=== PATIENT | female | born 1990 | race Hispanic/Latino ===

== ENCOUNTER 2022-10-24 03:40 | Emergency (ER) | payer OTHER ==
--- OUTSIDE RECORDS SUMMARY | 2022-10-24 03:43 | XMS REPORT | Continuity of Care Document ---
:1990 Author Organization [facility] t Address [address] [place] [address] Care Team Providers Name Role Phone Mily Simon Attending Clinician Unavailable Mily Simon Attending Clinician Unavailable Mily Simon Attending Clinician Unavailable Mily Simon Admitting Clinician Unavailable Payers Payer Name Policy Type Policy Number Effective Date Expiration Date S ource Problems This patient has no known problems. Allergies, Adverse Reactions, Alerts Allergy Allergy Status Severity Reaction(s) Onset Inactive Treating Comm ents Source Name Type Date Date Clinician No Known DA Active U 2020-1 [facility] 10-31 Allergie 00:00: s 00 No Known DA Active U 2020-1 [facility] Drug 09-21 Allergie 00:00: s 00 Unable DA Active U 2020-1 [facility] to 09-21 Assess 00:00: 00 Medications This patient has no known medications. Vital Signs Vital Name Observation Time Observation Value Comments Source Initial DRG Weight: 2020-10-10 16:48:30 1.5964 Working DRG Weight: 2020-10-10 16:48:30 1.5964 Have you Lost Weight Without 2020-10-10 16:48:30 No Trying in the Past 6 Months? 02 Sat by Pulse Oximetry 2020-10-10 16:48:30 68 /min BMI more than 35 2020-10-10 16:48:30 N Body Mass Index 2020-10-10 16:48:30 41.6 Height 2020-10-10 16:48:30 167.64\S\66 Pulse Rate 2020-10-10 16:48:30 68 /min Pulse Strength 2020-10-10 16:48:30 Normal /min Respiratory Rate 2020-10-10 16:48:30 20 /min Respiratory Depth 2020-10-10 16:48:30 Normal /min Respiratory Effort 2020-10-10 16:48:30 Spontaneous /min Respiratory Pattern 2020-10-10 16:48:30 Normal /min Temperature 2020-10-10 16:48:30 36.6\S\97.9 Weight 2020-10-10 16:48:30 143961.831\S\4128 Weight Measurement Method 2020-10-10 16:48:30 Standing Scale Initial DRG Weight: 2020-10-08 14:07:40 1.5964 Working DRG Weight: 2020-10-08 14:07:40 1.5964 Have you Lost Weight Without 2020-10-08 14:07:40 No Trying in the Past 6 Months? 02 Sat by Pulse Oximetry 2020-10-08 14:07:40 68 /min BMI more than 35 2020-10-08 14:07:40 N Body Mass Index 2020-10-08 14:07:40 41.6 Height 2020-10-08 14:07:40 167.64\S\66 Pulse Rate 2020-10-08 14:07:40 68 /min Pulse Strength 2020-10-08 14:07:40 Normal /min Respiratory Rate 2020-10-08 14:07:40 20 /min Respiratory Depth 2020-10-08 14:07:40 Normal /min Respiratory Effort 2020-10-08 14:07:40 Spontaneous /min Respiratory Pattern 2020-10-08 14:07:40 Normal /min Temperature 2020-10-08 14:07:40 36.6\S\97.9 Weight 2020-10-08 14:07:40 712978.831\S\4128 Weight Measurement Method 2020-10-08 14:07:40 Standing Scale 02 Sat by Pulse Oximetry 2020-09-08 01:35:25 68 /min BMI more than 35 2020-09-08 01:35:25 N Body Mass Index 2020-09-08 01:35:25 41.6 Height 2020-09-08 01:35:25 167.64\S\66 Pulse Rate 2020-09-08 01:35:25 68 /min Pulse Strength 2020-09-08 01:35:25 Normal /min Respiratory Rate 2020-09-08 01:35:25 20 /min Respiratory Depth 2020-09-08 01:35:25 Normal /min Respiratory Effort 2020-09-08 01:35:25 Spontaneous /min Respiratory Pattern 2020-09-08 01:35:25 Normal /min Temperature 2020-09-08 01:35:25 36.6\S\97.9 Weight 2020-09-08 01:35:25 889539.831\S\4128 Weight Measurement Method 2020-09-08 01:35:25 Standing Scale Initial DRG Weight: 2020-09-08 01:35:25 1.5964 Working DRG Weight: 2020-09-08 01:35:25 1.5964 Have you Lost Weight Without 2020-09-08 01:35:25 No Trying in the Past 6 Months? Have you Lost Weight Without 2020-09-04 04:34:45 No Trying in the Past 6 Months? 02 Sat by Pulse Oximetry 2020-09-04 04:34:45 68 /min BMI more than 35 2020-09-04 04:34:45 N Body Mass Index 2020-09-04 04:34:45 41.6 Height 2020-09-04 04:34:45 167.64\S\66 Pulse Rate 2020-09-04 04:34:45 68 /min Pulse Strength 2020-09-04 04:34:45 Normal /min Respiratory Rate 2020-09-04 04:34:45 20 /min Respiratory Depth 2020-09-04 04:34:45 Normal /min Respiratory Effort 2020-09-04 04:34:45 Spontaneous /min Respiratory Pattern 2020-09-04 04:34:45 Normal /min Temperature 2020-09-04 04:34:45 36.6\S\97.9 Weight 2020-09-04 04:34:45 907552.831\S\4128 Weight Measurement Method 2020-09-04 04:34:45 Standing Scale Have you Lost Weight Without 2020-09-03 13:58:01 No Trying in the Past 6 Months? 02 Sat by Pulse Oximetry 2020-09-03 13:58:01 68 /min BMI more than 35 2020-09-03 13:58:01 N Body Mass Index 2020-09-03 13:58:01 41.6 Height 2020-09-03 13:58:01 167.64\S\66 Pulse Rate 2020-09-03 13:58:01 68 /min Pulse Strength 2020-09-03 13:58:01 Normal /min Respiratory Rate 2020-09-03 13:58:01 20 /min Respiratory Depth 2020-09-03 13:58:01 Normal /min Respiratory Effort 2020-09-03 13:58:01 Spontaneous /min Respiratory Pattern 2020-09-03 13:58:01 Normal /min Temperature 2020-09-03 13:58:01 36.6\S\97.9 Weight 2020-09-03 13:58:01 448131.831\S\4128 Weight Measurement Method 2020-09-03 13:58:01 Standing Scale WEIGHT 2020-09-01 21:51:00 117.479223 kg 02 Sat by Pulse Oximetry 2020-09-01 18:35:43 99 /min BMI more than 35 2020-09-01 18:35:43 N Body Mass Index 2020-09-01 18:35:43 41.6 Height 2020-09-01 18:35:43 167.64\S\66 Pulse Rate 2020-09-01 18:35:43 92 /min Respiratory Rate 2020-09-01 18:35:43 12 /min Respiratory Depth 2020-09-01 18:35:43 Normal /min Respiratory Effort 2020-09-01 18:35:43 Spontaneous /min Respiratory Pattern 2020-09-01 18:35:43 Normal /min Temperature 2020-09-01 18:35:43 36.4\S\97.5 Weight 2020-09-01 18:35:43 211893.831\S\4128 Weight Measurement Method 2020-09-01 18:35:43 Standing Scale 02 Sat by Pulse Oximetry 2020-09-01 15:08:41 94 /min BMI more than 35 2020-09-01 15:08:41 N Body Mass Index 2020-09-01 15:08:41 41.6 Height 2020-09-01 15:08:41 167.64\S\66 Pulse Rate 2020-09-01 15:08:41 93 /min Respiratory Rate 2020-09-01 15:08:41 16 /min Respiratory Depth 2020-09-01 15:08:41 Normal /min Respiratory Effort 2020-09-01 15:08:41 Spontaneous /min Respiratory Pattern 2020-09-01 15:08:41 Normal /min Temperature 2020-09-01 15:08:41 36.4\S\97.5 Weight 2020-09-01 15:08:41 252979.831\S\4128 Weight Measurement Method 2020-09-01 15:08:41 Standing Scale 02 Sat by Pulse Oximetry 2020-09-01 14:49:58 99 /min BMI more than 35 2020-09-01 14:49:58 N Body Mass Index 2020-09-01 14:49:58 41.6 Height 2020-09-01 14:49:58 167.64\S\66 Pulse Rate 2020-09-01 14:49:58 89 /min Respiratory Rate 2020-09-01 14:49:58 17 /min Respiratory Depth 2020-09-01 14:49:58 Normal /min Respiratory Effort 2020-09-01 14:49:58 Spontaneous /min Respiratory Pattern 2020-09-01 14:49:58 Normal /min Temperature 2020-09-01 14:49:58 36.4\S\97.5 Weight 2020-09-01 14:49:58 061254.831\S\4128 Weight Measurement Method 2020-09-01 14:49:58 Standing Scale 02 Sat by Pulse Oximetry 2020-09-01 09:08:03 99 /min Body Mass Index 2020-09-01 09:08:03 41.6 Height 2020-09-01 09:08:03 167.64\S\66 Pulse Rate 2020-09-01 09:08:03 79 /min Respiratory Rate 2020-09-01 09:08:03 18 /min Temperature 2020-09-01 09:08:03 36\S\96.8 Weight 2020-09-01 09:08:03 844279.831\S\4128 Weight Measurement Method 2020-09-01 09:08:03 Standing Scale WEIGHT 2020-09-01 09:06:00 117.064691 kg HEIGHT 2020-09-01 09:06:00 167.64 cm Procedures This patient has no known procedures. Encounters Start End Encounter Admission Attending Care Care Encounter Source Date/Time Date/Time Type Type Clinicians Facility Department ID 2020-07-10 Inpatient Mily Simon [facility] ENDO [id number] [facility] 15:20:[address] [facility] 2020-06-05 Inpatient Mily Simon [facility] R[facility]ARD [id number] [facility] 13:23:[address] [facility] 2020-09-01 2020-09-01 Outpatient [facility] JM0 [id number] [facility] 12:30:00 12:30:00 Mily 47 2020-09-01 2020-09-01 Outpatient [facility] [id number] [facility] 06:04:00 06:04:00 47 2020-07-22 2020-07-22 Outpatient [facility] [id number] [facility] 12:45:00 12:45:00 Mily 97 2020-07-22 2020-07-22 Outpatient [facility] [id number] [facility] 09:36:00 09:36:00 97 Results Test Description Test Time Test Comments Results Result Comments Source Complete Blood Count Auto Diff 2020-09-03 09:16:00 Test Item Value Reference Range Interpretation Comme nts White Blood Count (test code = WBCT) 7.4 x10 3/uL 4.4-10.5 N Red Blood Count (test code = RBC) 4.08 x10 6/uL 3.75-5.20 N Hemoglobin (test code = HGBT) 12.3 g/dL 12.2-14.8 N Hematocrit (test code = HCTT) 36.7 % 36.5-44.4 N Mean Corpuscular Volume (test code = MCV) 90.00 fL 80.00-100.00 N Mean Corpuscular Hemoglobin (test code = MCH) 30.1 pg 27.0-32. 5 N Mean Corpuscular HGB Conc (test code = MCHC) 33.50 g/dL 32.00-37. 50 N RDW Coefficient of Variation (test code = RDWCV) 12.0 % 11.5- 14.5 N Platelet Count (test code = PLTT) 332.0 x10 3/uL 140.0-440.0 N Mean Platelet Volume (test code = MPV) 9.3 fL Immature Granulocytes % (Auto) (test code = IMMGRAN%) 0.3 % 0.0-5.0 N Neutrophils % (Auto) (test code = NE%) 63.3 % 36.0-70.0 N Lymphocytes % (Auto) (test code = LY%) 28.5 % 12.0-44.0 N Monocytes % (Auto) (test code = MO%) 7.0 % 0.0-11.0 N Eosinophils % (Auto) (test code = EO%) 0.5 % 0.0-7.0 N Basophils % (Auto) (test code = BA%) 0.4 % 0.0-2.0 N Immature Granulocytes # (Auto) (test code = IMMGRAN#) 0.02 x10 3/uL Neutrophils # (Auto) (test code = NE#) 4.7 x10 3/uL 1.6-7.4 N Lymphocytes # (Auto) (test code = LY#) 2.10 x10 3/uL 0.50-4.60 N Monocytes # (Auto) (test code = MO#) 0.52 x10 3/uL 0.00-1.20 N Eosinophils # (Auto) (test code = EO#) 0.04 x10 3/uL 0.00-0.74 N Basophils # (Auto) (test code = BA#) 0.03 x10 3/uL 0.00-0.21 N nRBC Abs (test code = NRBCA) 0 nRBC Pct (test code = NRBCP) 0 % Complete Blood Count Auto [id number] 07:00:00 Test Item Value Reference Range Interpretation Comments White Blood Count (test code = 12.7 x10 3/uL 4.4-10.5 H WBCT) Red Blood Count (test code = 4.53 x10 6/uL 3.75-5.20 N RBC) Hemoglobin (test code = HGBT) 13.4 g/dL 12.2-14.8 N Hematocrit (test code = HCTT) 41.3 % 36.5-44.4 N Mean Corpuscular Volume (test 91.20 fL 80.00-100.00 N code = MCV) Mean Corpuscular Hemoglobin 29.6 pg 27.0-32.5 N (test code = MCH) Mean Corpuscular HGB Conc 32.40 g/dL 32.00-37.50 N (test code = MCHC) RDW Coefficient of Variation 11.9 % 11.5-14.5 N (test code = RDWCV) Platelet Count (test code = 384.0 x10 3/uL 140.0-440.0 N PLTT) Mean Platelet Volume (test 9.1 fL code = MPV) Immature Granulocytes % (Auto) 0.5 % 0.0-5.0 N (test code = IMMGRAN%) Neutrophils % (Auto) (test 81.9 % 36.0-70.0 H code = NE%) Lymphocytes % (Auto) (test 11.6 % 12.0-44.0 L code = LY%) Monocytes % (Auto) (test code 5.8 % 0.0-11.0 N = MO%) Eosinophils % (Auto) (test 0.0 % 0.0-7.0 N code = EO%) Basophils % (Auto) (test code 0.2 % 0.0-2.0 N = BA%) Immature Granulocytes # (Auto) 0.06 x10 3/uL (test code = IMMGRAN#) Neutrophils # (Auto) (test 10.4 x10 3/uL 1.6-7.4 H code = NE#) Lymphocytes # (Auto) (test 1.47 x10 3/uL 0.50-4.60 N code = LY#) Monocytes # (Auto) (test code 0.73 x10 3/uL 0.00-1.20 N = MO#) Eosinophils # (Auto) (test 0.00 x10 3/uL 0.00-0.74 N code = EO#) Basophils # (Auto) (test code 0.02 x10 3/uL 0.00-0.21 N = BA#) nRBC Abs (test code = NRBCA) 0 nRBC Pct (test code = NRBCP) 0 % Comprehensive Metabolic [id number] 07:00:00 Test Item Value Reference Range Interpretation Comments SODIUM (test code = NA) 135.0 mmol/L 136.0-145.0 L Potassium,K (test code = K) 4.2 mmol/L 3.0-5.1 N Chloride (test code = CL) 105 mmol/L 98-107 N Carbon Dioxide (test code = 20 mmol/L 20-31 N CO2) Anion Gap (test code = GAP) 10 mmol/L 5-15 N Blood Urea Nitrogen (test code 7 mg/dL 9-23 L = BUN) Creatinine (test code = CREATT) 0.58 mg/dL 0.55-1.02 N Creatinine Clr Calc Pharmacy 182.79 mL/min (test code = CRCLPHA) Estimated GFR ( Liane > 60 mL/min/1.73m2 (test code = EGFRAA) Estimated GFR (Non Afr Liane > 60 mL/min/1.73m2 (test code = EGFRNAA) BUN/Creatinine Ratio (test code 12 ratio 10-20 N = BCRATIO) Glucose (test code = GLU) 128 mg/dL 74-106 H Osmolality,Calculated (test 279.5 code = OSMOC) Calcium (test code = CA) 8.3 mg/dL 8.3-10.6 N Bilirubin,Total (test code = 0.6 mg/dL 0.2-1.1 N BILIT) Aspartate Amino Transferase 61 U/L 0-34 H (test code = AST) Alanine Aminotransferase (test 84 U/L 10-49 H code = ALT) Total Protein (test code = TP) 7.0 g/dL 5.7-8.2 N Albumin Level (test code = ALB) 4.5 g/dL 3.2-4.8 N Globulin (test code = GLOB) 2.5 mg/dL 2.3-3.5 N Albumin/Globulin Ratio (test 1.8 ratio 0.8-2.0 N code = AGRATIO) Alkaline Phosphatase (test code 64 U/L 46-116 N = ALP) HCG, Urine Qual (LAB)2020-09-01 09:00:00 Test Item Value Reference Range Interpretation Comments HCG, Urine, Qual (test code = HCGU) Negative Negative HCG, Urine Qual (LAB)2020-07-22 11:53:00 Test Item Value Reference Range Interpretation Comments HCG, Urine, Qual (test code = HCGU) Negative Negative
[2022-10-24] MEDS ORDERED: ACETAMINOPHEN 500 MG TAB ONE (04:42)
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
--- NOTE | 2022-10-25 12:30 | RAD REPORT ---
EXAM DESCRIPTION: RAD - Hand Left 3 View - 10/24/2022 4:38 am CLINICAL HISTORY: PAIN; COMPARISON: None. FINDINGS: The visualized osseous structures appear intact. The joint spaces appear unremarkable. T here is no evidence for bony erosion or destruction. There is no radiopaque foreign body. IMPRESSION: 1. No acute findings of the left hand. Electronically signed by: David Chowdhury MD 10/24/2022 5:47 AM BRACELET MAKER NOVELTY Due to temporary technical issues with the PACS/Fluency reporting system, reports are being signed by the in house radiologists without review as a courtesy to insure prompt reporting. The interpreting radiologist is fully responsible for the content of the report.
--- NOTE | 2022-10-25 12:33 | RAD REPORT ---
EXAM DESCRIPTION: RAD - Hand Right 3 View - 10/24/2022 4:38 am CLINICAL HISTORY: PAIN; COMPARISON: None. FINDINGS: The visualized osseous structures appear intact. The joint spaces appear unremarkable. T here is no evidence for bony erosion or destruction. There is no radiopaque foreign body. IMPRESSION: 1. No acute findings of the right hand. Electronically signed by: David Chowdhury MD 10/24/2022 5:47 AM REGULATORY AFFAIRS ASSISTANT Due to temporary technical issues with the PACS/Fluency reporting system, reports are being signed by the in house radiologists without review as a courtesy to insure prompt reporting. The interpreting radiologist is fully responsible for the content of the report.
--- NOTE | 2022-10-25 12:45 | RAD REPORT ---
EXAM DESCRIPTION: CT - Head C Spine Mpr Wo Con - 10/24/2022 6:51 am CLINICAL HISTORY: TRAUMA TECHNIQUE: 5 mm axial images were obtained through the brain without IV contrast. This exam was perf ormed according to our departmental dose-optimization program which includes use of Automated Exposur e Control, adjustment of the mA and/or kV according to patient size and/or use of iterative reconstru ction technique. COMPARISON: None. FINDINGS: The brain parenchyma appears age appropriate. There is no intra-axial or extra-axial ble ed seen. There is no mass or mass effect. There is no evidence of hydrocephalus. The orbital contents appear unremarkable. The visualized paranasal sinuses and mastoid air cells are patent. No fracture is present. IMPRESSION: No acute intracranial abnormality. COMPARISON: None TECHNIQUE: Contiguous noncontrast axial images of the cervical spine were obtained. Sagittal and cor onal reformatted images are generated for review. This exam was performed according to our department al dose-optimization program, which includes automated exposure control, adjustment of the mA and/or kV according to patient size and/or use of iterative reconstruction technique. FINDINGS: BONES: The visualized osseous structures appear intact. The base of the odontoid is unrem arkable. The facet joints appear in anatomic alignment. The spinolaminar line is normal. DEGENERATIVE CHANGES: No significant degenerative changes. SOFT TISSUES: The prevertebral soft tissues are unremarkable. The visualized lung apices are clear . IMPRESSION: No acute osseous abnormality of the cervical spine. Electronically signed by: David Chowdhury MD 10/24/2022 5:48 AM [employer] [email or web address] Due to temporary technical issues with the PACS/Fluency reporting system, reports are being signed by the in house radiologists without review as a courtesy to insure prompt reporting. The interpreting radiologist is fully responsible for the content of the report.
--- NOTE | 2022-10-25 12:48 | RAD REPORT ---
EXAM DESCRIPTION: CT - Facial Bones W/ Mpr - 10/24/2022 6:51 am CLINICAL HISTORY: TRAUMA COMPARISON: None TECHNIQUE: Contiguous axial sections were obtained through the face without IV contrast administrati on. Sagittal and coronal reconstructed images were obtained. This exam was performed according to our departmental dose-optimization program, which includes automated exposure control, adjustment of the mA and/or kV according to patient size and/or use of iterative reconstruction technique. FINDINGS: FACIAL BONES: The maxilla, pterygoid plates, and zygomatic arches are intact. The mandibl e is intact. The mandibular condyles are normally situated. The nasal bones and maxillary nasal proce sses are intact. ORBITS: The globes appear intact. The extraocular muscles, optic nerve sheath complexes and lacrimal glands appear unremarkable. No retrobulbar hematoma or mass is seen. The orbital logan and rims are intact. SINUSES/MASTOID: The paranasal sinuses and mastoid air cells are well aerated. No acute sinusitis is identified. SOFT TISSUES: No focal soft tissue abnormality. IMPRESSION: 1. No acute facial fracture. Electronically signed by: David Chowdhury MD 10/24/2022 5:50 AM [facility] Due to temporary technical issues with the PACS/Fluency reporting system, reports are being signed by the in house radiologists without review as a courtesy to insure prompt reporting. The interpreting radiologist is fully responsible for the content of the report.
== END 2022-10-24 06:21 | disposition home or self-care (01) ==
LOC: ER 03:40
DX: M79.642 Pain in left hand (principal); M79.641 Pain in right hand; S09.93XA Unspecified injury of face, initial encounter; Y04.8XXA Assault by other bodily force, initial encounter; Z98.82 Breast implant status
CPT/HCPCS: 70450; 70486; 72125; 76377; 99283

== ENCOUNTER 2022-11-05 13:32 | Emergency (ER) | payer OTHER ==
--- OUTSIDE RECORDS SUMMARY | 2022-11-05 13:34 | XMS REPORT | Continuity of Care Document ---
:1990 Author Organization [facility] t Address [address] [place] [address] Care Team Providers Name Role Phone Mily [...] Temperature 2020-10-10 16:48:30 36.6\S\97.9 Weight 2020-10-10 16:48:30 246182.831\S\4128 Weight Measurement Method 2020-10-10 16:48:30 Standing Scale [...] Temperature 2020-10-08 14:07:40 36.6\S\97.9 Weight 2020-10-08 14:07:40 988029.831\S\4128 Weight Measurement Method 2020-10-08 14:07:40 Standing Scale [...] Temperature 2020-09-08 01:35:25 36.6\S\97.9 Weight 2020-09-08 01:35:25 827558.831\S\4128 Weight Measurement Method 2020-09-08 01:35:25 Standing Scale [...] Temperature 2020-09-04 04:34:45 36.6\S\97.9 Weight 2020-09-04 04:34:45 621684.831\S\4128 Weight Measurement Method 2020-09-04 04:34:45 Standing Scale [...] Temperature 2020-09-03 13:58:01 36.6\S\97.9 Weight 2020-09-03 13:58:01 734209.831\S\4128 Weight Measurement Method 2020-09-03 13:58:01 Standing Scale WEIGHT 2020-09-01 21:51:00 117.639550 kg 02 Sat by Pulse Oximetry 2020-09-01 [...] Temperature 2020-09-01 18:35:43 36.4\S\97.5 Weight 2020-09-01 18:35:43 123622.831\S\4128 Weight Measurement Method 2020-09-01 18:35:43 Standing Scale [...] Temperature 2020-09-01 15:08:41 36.4\S\97.5 Weight 2020-09-01 15:08:41 857342.831\S\4128 Weight Measurement Method 2020-09-01 15:08:41 Standing Scale [...] Temperature 2020-09-01 14:49:58 36.4\S\97.5 Weight 2020-09-01 14:49:58 946059.831\S\4128 Weight Measurement Method 2020-09-01 14:49:58 Standing Scale 02 Sat by Pulse Oximetry 2020-09-01 09:08:03 99 /min Body Mass Index 2020-09-01 09:08:03 41.6 Height 2020-09-01 09:08:03 167.64\S\66 Pulse Rate 2020-09-01 09:08:03 79 /min Respiratory Rate 2020-09-01 09:08:03 18 /min Temperature 2020-09-01 09:08:03 36\S\96.8 Weight 2020-09-01 09:08:03 962129.831\S\4128 Weight Measurement Method 2020-09-01 09:08:03 Standing Scale WEIGHT 2020-09-01 09:06:00 117.053485 kg HEIGHT 2020-09-01 09:06:00 167.64 cm Procedures This patient has no known procedures. Encounters Start End Encounter Admission Attending Care Care Encounter Source Date/Time Date/Time Type Type Clinicians Facility Department ID 2020-07-10 Inpatient Mily Simon [facility] ENDO [id number] [facility] 15:20:00 [facility] 2020-06-05 Inpatient Mily Simon [facility] RICHARD [id number] St[facility] 13:23:00 [facility] 2020-09-01 2020-09-01 Outpatient [facility] JM0 [id number] [facility] 12:30:00 12:30:00 Mily 47 2020-09-01 2020-09-01 Outpatient [facility] [id number] [facility] 06:04:00 06:04:00 47 2020-07-22 2020-07-22 Outpatient [facility] JM0 [id number] [facility] 12:45:00 12:45:00 Mily 97 2020-07-22 2020-07-22 Outpatient [facility] [id number] [facility] 09:36:00 09:36:00 97 Results Test [...] NRBCP) 0 % Complete Blood Count Auto [id number] 07:00:00 Test Item Value Reference Range Interpretation [...] code = NRBCP) 0 % Comprehensive Metabolic [id number] 07:00:00 Test Item Value Reference Range Interpretation [...]
[2022-11-05 14:52] LABS: Urine Blood Negative (Negative); Urine Glucose Negative (Negative); Urine Protein Negative (Negative); Urine Specific Gravity >=1.030 (1.005-1.030); Urine pH 5.5 (5.0-7.0)
--- NOTE | 2022-11-05 15:00 | ER ---
Nurse's Notes [facility] Name: Rubina Dominguez Age: 32 yrs Sex: Female : 1990 Arrival Date: 11/05/2022 Time: 13:33 Bed 18 Private MD: Diagnosis: UTI/ Urinary tract infection, site not specified Presentation: 11/05 13:56 Chief complaint: Patient states: Nausea \T\ Dizziness X 2 days, headache, ringing in ld1 ears. Pt reports coming to ER on 10/25 for concussion, symptoms have not resolved. Coronavirus screen: At this time, the client does not indicate any symptoms associated with coronavirus-19. Ebola Screen: No symptoms or risks identified at this time. Initial Sepsis Screen: Does the patient meet any 2 criteria? No. Patient's initial sepsis screen is negative. Does the patient have a suspected source of infection? No. Patient's initial sepsis screen is negative. Risk Assessment: Do you want to hurt yourself or someone else? Patient reports no desire to harm self or others. Onset of symptoms was November 05, 2022. 13:56 Method Of Arrival: Ambulatory ld1 13:56 Acuity: ANDERS 3 ld1 Triage Assessment: 13:58 Headache History: Denies prior headaches. General: Appears in no apparent distress. ld1 comfortable, Behavior is calm, cooperative, appropriate for age. Pain: Complains of pain in face Pain does not radiate. Pain currently is 7 out of 10 on a pain scale. Quality of pain is described as throbbing, Pain began 15 days ago. EENT: No signs and/or symptoms were reported regarding the EENT system. EENT: Reports ringing in left ear and right ear. Neuro: Level of Consciousness is awake, alert, obeys commands, Oriented to person, place, time, situation, Reports. Cardiovascular: Capillary refill < 3 seconds Patient's skin is warm and dry. Respiratory: Airway is patent Respiratory effort is even, unlabored. Historical: - Allergies: 13:58 No Known Allergies; ld1 - PMHx: 13:58 None; ld1 - PSHx: 13:58 gastric sleeve; breast augmentation; Tummy tuck; ld1 - Immunization history:: Adult Immunizations up to date, Client reports receiving the 2nd dose of the Covid vaccine. - Social history:: Smoking status: Patient denies any tobacco usage or history of. Patient/guardian denies using alcohol. Screenin:00 [facility] ED Fall Risk Assessment (Adult) History of falling in the last 3 months, ko1 including since admission No falls in past 3 months (0 pts) Confusion or Disorientation No (0 pts) Intoxicated or Sedated No (0 pts) Impaired Gait No (0 pts) Mobility Assist Device Used No (0 pt) Altered Elimination No (0 pt) Score/Fall Risk Level 0 - 2 = Low Risk Oriented to surroundings, Maintained a safe environment, Educated pt \T\ family on fall prevention, incl call for assistance when getting out of bed, Assessed \T\ reinforced patient's understanding of fall precautions, Provided non-skid footwear, Hourly rounding (assess needs \T\ fall precautionary measures) done, Used ambulatory aids as needed (educated on \T\ assisted with), Used gait belt as appropriate. Abuse screen: Denies threats or abuse. Denies injuries from another. Nutritional screening: No deficits noted. Tuberculosis screening: No symptoms or risk factors identified. Assessment: 15:00 General: Appears in no apparent distress. comfortable, Behavior is calm, cooperative, ko1 appropriate for age. Pain: Complains of pain in right ear and left ear and face. Neuro: No deficits noted. Cardiovascular: No deficits noted. Respiratory: No deficits noted. GI: No deficits noted. : No deficits noted. EENT: Reports pain in right ear and left ear and face. Derm: No deficits noted. Musculoskeletal: No deficits noted. Vital Signs: 13:56 BP 135 / 88; Pulse 79; Resp 18; Temp 97.3(TE); Pulse Ox 100% on R/A; Weight 95.25 kg; ld1 Height 5 ft. 6 in. (167.64 cm); Pain 7/10; 15:00 BP 129 / 82; Pulse 74; Resp 18; Pulse Ox 99% ; ko1 13:56 Body Mass Index 33.89 (95.25 kg, 167.64 cm) ld1 ED Course: 13:33 Patient arrived in ED. mr 13:35 [facility] snw 13:35 Renaldo Reid DO is Attending Physician. snw 13:58 Triage completed. ld1 13:58 Arm band placed on right wrist. ld1 14:52 Urine collected: clean catch specimen, clear. tm3 14:53 Norma Martel, RN is Primary Nurse. ko1 14:54 Urine Culture Sent. ko1 14:54 Urine Microscopic Only Sent. ko1 15:00 Patient has correct armband on for positive identification. Bed in low position. Call ko1 light in reach. Side rails up X 1. Pulse ox on. NIBP on. 15:00 No provider procedures requiring assistance completed. Patient did not have IV access ko1 during this emergency room visit. 15:23 Urine --Ancillary (enter results) Sent. ko1 Administered Medications: 15:26 Drug: Rocephin (cefTRIAXone) 1 grams Route: IM; Site: right gluteus; ko1 Medication: 15:00 VIS not applicable for this client. ko1 Outcome: 15:00 Discharge ordered by . snw 15:00 Discharged to home ambulatory. ko1 15:00 Condition: stable 15:00 Discharge instructions given to patient, Instructed on discharge instructions, follow up and referral plans. medication usage, Demonstrated understanding of instructions, follow-up care, medications, Prescriptions given X 1. 15:54 Patient left the ED. ko1 Addendum: 11/08/2022 08:49 Addendum: Culture Results: Positive urine culture. No further action required. Bacteria i w sensitive to prescribed antibiotic. Signatures: Joseph Murphy tm3 Lian Mata, FUSE ASSEMBLER-C FUSE ASSEMBLER-Csnw Janice Giles Colleen Tovar, RN TANISHA Rachel Romero RN RN ld1 Norma Martel, RN RN ko1
--- NOTE | 2022-11-05 15:00 | EDPHYS ---
Physician Documentation [facility] Name: Rubina Dominguez Age: 32 yrs Sex: Female : 1990 Arrival Date: 11/05/2022 Time: 13:33 Bed 18 Private MD: ED Physician Renaldo Reid HPI: 11/05 14:54 This 32 yrs old Female presents to ER via Ambulatory with complaints of snw Headache, Nausea, Dizziness. Historical: - Allergies: 13:58 No Known Allergies; ld1 - PMHx: 13:58 None; ld1 - PSHx: 13:58 gastric sleeve; breast augmentation; Tummy tuck; ld1 - Immunization history:: Adult Immunizations up to date, Client reports receiving the 2nd dose of the Covid vaccine. - Social history:: Smoking status: Patient denies any tobacco usage or history of. Patient/guardian denies using alcohol. ROS: 14:52 Constitutional: Negative for fever, chills, and weight loss, Eyes: Negative for injury, snw pain, redness, and discharge, Neck: Negative for injury, pain, and swelling, Cardiovascular: Negative for chest pain, palpitations, and edema, Respiratory: Negative for shortness of breath, cough, wheezing, and pleuritic chest pain, Abdomen/GI: Negative for abdominal pain, nausea, vomiting, diarrhea, and constipation, Back: Negative for injury and pain, : Negative for injury, bleeding, discharge, and swelling, MS/Extremity: Negative for injury and deformity, Skin: Negative for injury, rash, and discoloration, Psych: Negative for depression, anxiety, suicide ideation, homicidal ideation, and hallucinations. 14:52 Neuro: Positive for dizziness, headache. Exam: 14:51 Constitutional: This is a well developed, well nourished patient who is awake, alert, snw and in no acute distress. Head/Face: Normocephalic, atraumatic. Eyes: Pupils equal round and reactive to light, extra-ocular motions intact. Lids and lashes normal. Conjunctiva and sclera are non-icteric and not injected. Cornea within normal limits. Periorbital areas with no swelling, redness, or edema. ENT: Nares patent. No nasal discharge, no septal abnormalities noted. Tympanic membranes are normal and external auditory canals are clear. Oropharynx with no redness, swelling, or masses, exudates, or evidence of obstruction, uvula midline. Mucous membranes moist. Neck: Trachea midline, no thyromegaly or masses palpated, and no cervical lymphadenopathy. Supple, full range of motion without nuchal rigidity, or vertebral point tenderness. No Meningismus. Chest/axilla: Normal chest wall appearance and motion. Nontender with no deformity. No lesions are appreciated. Cardiovascular: Regular rate and rhythm with a normal S1 and S2. No gallops, murmurs, or rubs. Normal PMI, no JVD. No pulse deficits. Respiratory: Lungs have equal breath sounds bilaterally, clear to auscultation and percussion. No rales, rhonchi or wheezes noted. No increased work of breathing, no retractions or nasal flaring. Abdomen/GI: Soft, non-tender, with normal bowel sounds. No distension or tympany. No guarding or rebound. No evidence of tenderness throughout. Back: No spinal tenderness. No costovertebral tenderness. Full range of motion. Skin: Warm, dry with normal turgor. Normal color with no rashes, no lesions, and no evidence of cellulitis. MS/ Extremity: Pulses equal, no cyanosis. Neurovascular intact. Full, normal range of motion. Neuro: Awake and alert, GCS 15, oriented to person, place, time, and situation. Cranial nerves II-XII grossly intact. Motor strength 5/5 in all extremities. Sensory grossly intact. Cerebellar exam normal. Normal gait. Psych: Awake, alert, with orientation to person, place and time. Behavior, mood, and affect are within normal limits. Vital Signs: 13:56 BP 135 / 88; Pulse 79; Resp 18; Temp 97.3(TE); Pulse Ox 100% on R/A; Weight 95.25 kg; ld1 Height 5 ft. 6 in. (167.64 cm); Pain 7/10; 15:00 BP 129 / 82; Pulse 74; Resp 18; Pulse Ox 99% ; ko1 13:56 Body Mass Index 33.89 (95.25 kg, 167.64 cm) ld1 MDM: 14:37 Patient medically screened. snw 15:02 Differential Diagnosis flu, UTI, head injury. Data reviewed: vital signs, nurses notes, snw lab test result(s), urinalysis, bacteruria. Counseling: I had a detailed discussion with the patient and/or guardian regarding: the historical points, exam findings, and any diagnostic results supporting the discharge/admit diagnosis, the presence of at least one elevated blood pressure reading (>120/80) during this emergency department visit, lab results, the need for further work-up and treatment in the hospital, to return to the emergency department if symptoms worsen or persist or if there are any questions or concerns that arise at home. Special discussion: I have referred the patient to see his PCP for further evaluation of high blood pressure. Based on the history and exam findings, there is no indication for further emergent testing or inpatient evaluation. I discussed with the patient/guardian the need to see the primary care provider for further evaluation of the symptoms. 11/05 14:18 Order name: Urine Culture snw 11/05 14:18 Order name: Urine Microscopic Only snw 11/05 14:18 Order name: Urine Dipstick-Ancillary (obtain specimen); Complete Time: 14:54 snw 11/05 14:18 Order name: Urine Test (obtain specimen); Complete Time: 14:54 snw 11/05 14:52 Order name: Urine --Ancillary (enter results) eb 11/05 14:53 Order name: Urine Dipstick-Ancillary; Complete Time: 14:59 EDMS 11/05 15:04 Order name: Urine --Ancillary; Complete Time: 15:09 EDMS 11/05 15:08 Order name: Urine Microscopic Only; Complete Time: 15:09 EDMS Administered Medications: 15:26 Drug: Rocephin (cefTRIAXone) 1 grams Route: IM; Site: right gluteus; ko1 Disposition: 15:33 Co-signature as Attending Physician, Renaldo JAMISON was immediately available on-site ms3 in the Emergency Department for consultation in the care of the patient. Disposition Summary: 11/05/22 15:00 Discharge Ordered Location: Home snw Condition: Stable snw Diagnosis - UTI/ Urinary tract infection, site not specified snw Followup: snw - With: Emergency Department - When: As needed - Reason: Worsening of condition Followup: snw - With: Private Physician - When: 2 - 3 days - Reason: Recheck today's complaints, Continuance of care, Re-evaluation by your physician Discharge Instructions: - Discharge Summary Sheet snw - Urinary Tract Infection, Adult snw - Rehydration, Adult snw Forms: - Medication Reconciliation Form snw - Thank You Letter snw - Antibiotic Education snw - Prescription Opioid Use snw - Work release form eb Prescriptions: - Augmentin 875-125 mg Oral Tablet - take 1 tablet by ORAL route every 12 hours for 10 days; 20 tablet; Refills: 0, snw Product Selection Permitted Signatures: Dispatcher [employer] EDMS Lian Mata FNP-C STRUCTURER-Csnw Renaldo Reid DO DO ms3 Rachel Romero, RN RN ld1 Norma Martel RN RN ko1
[2022-11-05 15:07] LABS: Urine Bacteria >50 /HPF (<20); Urine Mucus 3+ /HPF (None Seen); Urine RBC <5 /HPF (None Seen)
[2022-11-05] MEDS ORDERED: CEFTRIAXONE 1000 MG/VIAL ONE (15:12)
[2022-11-05] MEDS ORDERED: LIDOCAINE 1% MPF 2 ML AMPULE ONE (15:26)
[2022-11-05 16:17] VITALS: TEMP 97.3
[2022-11-05 16:19] VITALS: BP 129/82; O2SAT 99
== END 2022-11-05 15:54 | disposition home or self-care (01) ==
LOC: ER 13:32
DX: N39.0 Urinary tract infection, site not specified (principal); Z98.82 Breast implant status
CPT/HCPCS: 81003; 81015; 81025; 87077; 87086; 87088; 87186; 96372; 99284